=== PATIENT | female | born 1995 | race Caucasian/White ===

== ENCOUNTER 2022-11-20 12:54 | Day surgery (SDC) | payer BC ==
[2022-11-20] MEDS ORDERED: hydrALAZINE 20 MG/ML VIAL SLOW IVP PRN (13:45)
[2022-11-20 14:04] VITALS: BMI 30.1
[2022-11-20 14:35] LABS: #Basophils 0.1 10x3/uL (0.0-0.2); #Eosinphils 0.1 10x3/uL (0.0-0.5); #Monocytes 0.8 10x3/uL (0.0-1.1); #Neutrophils 6.6 10x3/uL (1.5-8.4); %Basophils 0.5 % (0.0-2.0); %Lymphocytes 17.7 % (18.0-47.0); %Monocytes 8.2 % (0.0-10.0); %Neutrophils 72.2 % (40.0-75.0); Hemoglobin 10.6 g/dL (12.0-15.5); Mean Corpuscular HGB CONC 34.5 g/dL (32.0-36.0); Mean Corpuscular Volume 95.6 fl (81.6-98.3); Mean Platelet Volume 11.1 fl (7.4-10.4); Platelet Count 171 10x3/uL (150-450); RBC Distribution Width 12.3 % (11.5-14.5); Red Blood Cell (RBC) Count 3.21 10x6/uL (3.90-5.03); White Blood Cell (WBC) Count 9.2 10x3/uL (3.5-10.5)
[2022-11-20 14:49] LABS: Creatinine, Urine 69.01 mg/dL (47-110)
[2022-11-20 14:50] LABS: ALT (SGPT) 13 U/L (8-55); AST (SGOT) 14 U/L (5-34); Albumin 3.1 g/dL (3.5-5.0); Alkaline Phosphatase 132 U/L (40-110); Anion Gap 13 mmol/L (10-20); BUN (Urea Nitrogen) 15 mg/dL (7.0-18.7); Bilirubin, Total 0.2 mg/dL (0.2-1.2); Calc. Creatinine Clearance 177 mL/min (70-130); Calcium 8.2 mg/dL (7.8-10.44); Carbon Dioxide 23 mmol/L (22-29); Chloride 104 mmol/L (98-107); Estimated GFR 125; Glucose 115 mg/dL (70-105); Potassium 3.6 mmol/L (3.5-5.1); Protein, Total 6.1 g/dL (6.0-8.3); Sodium 136 mmol/L (136-145)
[2022-11-20 15:09] LABS: HIV (1/2) Antibody/Antigen Non-Reactive (NonReactive); HIV 1/2 INDEX 0.14 S/CO (<1.00)
[2022-11-20 15:10] LABS: Syphilis Antibody Nonreactive (Nonreactive); Syphilis Antibody Index 0.03 S/CO (<1.00 Non-Reactive)
[2022-11-21 22:49] LABS: Group B Streptococcus by PCR Not Detected (NotDetected)
== END 2022-11-20 17:35 | disposition home or self-care (01) ==
LOC: CSHLD/OP 12:54
PROVIDERS: ATTEND Family Medicine
DX: O12.03 Gestational edema, third trimester (principal); O14.93 Unspecified pre-eclampsia, third trimester; O99.891 Other specified diseases and conditions complicating pregnancy; R51.9 Headache, unspecified; O99.323 Drug use complicating pregnancy, third trimester; F12.90 Cannabis use, unspecified, uncomplicated; Z79.899 Other long term (current) drug therapy; Z88.2 Allergy status to sulfonamides; Z3A.35 35 weeks gestation of pregnancy; Z91.040 Latex allergy status
CPT/HCPCS: 80053; 82570; 84156; 85025; 86780; 87389; 87653; 99285

== ENCOUNTER 2022-11-23 18:02 | Day surgery (SDC) | payer BC ==
[2022-11-23 18:25] VITALS: BMI 30.2
[2022-11-23] MEDS ORDERED: hydrALAZINE 20 MG/ML VIAL SLOW IVP PRN (18:43)
[2022-11-23] MEDS ORDERED: Acetaminophen 325 MG TAB PO PRN (19:44)
[2022-11-23] MEDS ORDERED: Acetaminophen 500 MG TAB PO PRN (19:53)
[2022-11-23 20:01] LABS: #Eosinphils 0.1 10x3/uL (0.0-0.5); #Monocytes 0.9 10x3/uL (0.0-1.1); #Neutrophils 7.3 10x3/uL (1.5-8.4); %Basophils 0.4 % (0.0-2.0); %Lymphocytes 19.8 % (18.0-47.0); %Neutrophils 69.2 % (40.0-75.0); Hemoglobin 10.9 g/dL (12.0-15.5); Mean Corpuscular HGB CONC 34.5 g/dL (32.0-36.0); Mean Corpuscular Hemoglobin 32.9 pg (27.0-33.0); Mean Corpuscular Volume 95.5 fl (81.6-98.3); Mean Platelet Volume 11.3 fl (7.4-10.4); Platelet Count 182 10x3/uL (150-450); RBC Distribution Width 12.4 % (11.5-14.5); Red Blood Cell (RBC) Count 3.31 10x6/uL (3.90-5.03); White Blood Cell (WBC) Count 10.5 10x3/uL (3.5-10.5)
[2022-11-23 20:12] LABS: ALT (SGPT) 8 U/L (8-55); AST (SGOT) 14 U/L (5-34); Albumin 3.1 g/dL (3.5-5.0); Alkaline Phosphatase 135 U/L (40-110); Anion Gap 13 mmol/L (10-20); BUN (Urea Nitrogen) 16 mg/dL (7.0-18.7); Bilirubin, Total 0.2 mg/dL (0.2-1.2); Calc. Creatinine Clearance 178 mL/min (70-130); Calcium 8.4 mg/dL (7.8-10.44); Carbon Dioxide 23 mmol/L (22-29); Chloride 104 mmol/L (98-107); Estimated GFR 125; Globulin 3.3 g/dL (2.4-3.5); Glucose 91 mg/dL (70-105); Potassium 3.6 mmol/L (3.5-5.1); Protein, Total 6.4 g/dL (6.0-8.3); Sodium 136 mmol/L (136-145)
[2022-11-23 20:16] LABS: Creatinine, Urine 120.65 mg/dL (47-110)
== END 2022-11-23 22:55 | disposition home or self-care (01) ==
LOC: CSHLD/OP 18:02
PROVIDERS: ATTEND Emergency Medicine
DX: O14.03 Mild to moderate pre-eclampsia, third trimester (principal); Z3A.36 36 weeks gestation of pregnancy; O99.891 Other specified diseases and conditions complicating pregnancy; O34.593 Maternal care for other abnormalities of gravid uterus, third trimester; N85.6 Intrauterine synechiae; R51.9 Headache, unspecified; O99.343 Other mental disorders complicating pregnancy, third trimester; F41.1 Generalized anxiety disorder; Z79.899 Other long term (current) drug therapy; Z88.2 Allergy status to sulfonamides; Z91.040 Latex allergy status
CPT/HCPCS: 36415; 80053; 82570; 84156; 85025; 99284

== ENCOUNTER 2022-11-25 00:26 | Inpatient (IN) | payer BC ==
[2022-11-25 00:50] VITALS: BMI 30.6
[2022-11-25] MEDS ORDERED: Calcium Gluc 4.6 MEQ/10 ML (100 MG/ML) SLOW IVP PRN (00:51)
[2022-11-25] MEDS ORDERED: hydrALAZINE 20 MG/ML VIAL SLOW IVP PRN (00:51)
[2022-11-25] MEDS ORDERED: Lorazepam 2 MG/ML VIAL SLOW IVP PRN (00:51)
[2022-11-25 01:42] LABS: Creatinine, Urine 92.74 mg/dL (47-110)
[2022-11-25 02:15] LABS: #Eosinphils 0.2 10x3/uL (0.0-0.5); #Monocytes 1.2 10x3/uL (0.0-1.1); #Neutrophils 6.8 10x3/uL (1.5-8.4); %Basophils 0.3 % (0.0-2.0); %Eosinophils 1.4 % (0.0-6.0); %Lymphocytes 21.7 % (18.0-47.0); %Monocytes 11.4 % (0.0-10.0); %Neutrophils 64.8 % (40.0-75.0); Hemoglobin 10.5 g/dL (12.0-15.5); Mean Corpuscular HGB CONC 35.1 g/dL (32.0-36.0); Mean Corpuscular Hemoglobin 33.5 pg (27.0-33.0); Mean Corpuscular Volume 95.5 fl (81.6-98.3); Mean Platelet Volume 10.9 fl (7.4-10.4); Platelet Count 169 10x3/uL (150-450); RBC Distribution Width 12.4 % (11.5-14.5); Red Blood Cell (RBC) Count 3.13 10x6/uL (3.90-5.03); White Blood Cell (WBC) Count 10.5 10x3/uL (3.5-10.5)
[2022-11-25 02:32] LABS: ALT (SGPT) 12 U/L (8-55); AST (SGOT) 16 U/L (5-34); Albumin 2.9 g/dL (3.5-5.0); Alkaline Phosphatase 130 U/L (40-110); Anion Gap 13 mmol/L (10-20); BUN (Urea Nitrogen) 16 mg/dL (7.0-18.7); Bilirubin, Total 0.2 mg/dL (0.2-1.2); Calc. Creatinine Clearance 186 mL/min (70-130); Calcium 8.1 mg/dL (7.8-10.44); Carbon Dioxide 22 mmol/L (22-29); Chloride 104 mmol/L (98-107); Estimated GFR 126; Globulin 2.7 g/dL (2.4-3.5); Glucose 94 mg/dL (70-105); Potassium 3.5 mmol/L (3.5-5.1); Protein, Total 5.6 g/dL (6.0-8.3); Sodium 135 mmol/L (136-145)
[2022-11-25] MEDS ORDERED: Promethazine HCl 25 MG/ML VIAL IM PRN ×2 (02:56→21:25)
[2022-11-25] MEDS ORDERED: Ondansetron PF 4 MG/2 ML Vial IVP PRN ×2 (02:56→21:25)
[2022-11-25] MEDS: Acetaminophen 500 MG TAB PO PRN ×2 (03:00→22:38)
[2022-11-25] MEDS ORDERED: NS w/ Oxytocin 30 units 500 ML IV SCH ×3 (03:00→13:30)
[2022-11-25] MEDS ORDERED: Bupivacaine/Epinephrine 0.25% 30 ML VIAL ONE (08:00)
[2022-11-25] MEDS ORDERED: Carboprost 250 MCG/ML AMP IM PRN (08:53)
[2022-11-25] MEDS ORDERED: Tranexamic Acid 1,000 MG/10 ML VIAL IVP PRN (08:53)
[2022-11-25] MEDS ORDERED: Diphenoxylate HCl/Atropine Tablet PO PRN (08:53)
[2022-11-25] MEDS ORDERED: Misoprostol 200 MCG TAB PR PRN (08:53)
[2022-11-25] MEDS ORDERED: Butorphanol Tartrate 1 MG/ML VIAL SLOW IVP PRN (08:53)
[2022-11-25] MEDS ORDERED: Magnesium 2 GM/50 ML(in water) 1 GM in Premix Bag 1 BAG IVPB SCH (09:00)
[2022-11-25] MEDS ORDERED: Magnesium Sulfate 4 GM in Sodium Chloride 0.9% 250 ML 250 ML IVPB SCH (09:00)
[2022-11-25] MEDS ORDERED: Magnesium Sulfate 20 gm/500 ml 20 GM/500 ML BAG ONE (09:06)
[2022-11-25] MEDS ORDERED: Magnesium Sulfate 20 gm/500 ml 20 GM/500 ML BAG IVPB PRN (09:15)
[2022-11-25] MEDS ORDERED: Magnesium Sulfate 20 gm/500 ml 4 GM/100 ML BAG IVPB ONE (09:15)
[2022-11-25] MEDS ORDERED: Misoprostol 100 MCG TAB ONE (10:19)
[2022-11-25 10:58] LABS: HBSAg Index 0.16 S/CO (0-0.99); Hep B Surf Ag - L&D Non-Reactive S/CO (NonReactive)
[2022-11-25 11:00] LABS: Syphilis Antibody Nonreactive (Nonreactive); Syphilis Antibody Index 0.04 S/CO (<1.00 Non-Reactive)
[2022-11-25] MEDS ORDERED: Metoclopramide HCl 10 MG/2 ML VIAL IVP SCH ×2 (12:30→18:30)
[2022-11-25] MEDS ORDERED: Ibuprofen 800 MG TAB PO PRN (13:21)
[2022-11-25] MEDS ORDERED: Lidocaine 1% (PF) 30 ML VIAL SC PRN (13:21)
[2022-11-25] MEDS ORDERED: Misoprostol 100 MCG TAB VAG SCH (13:30)
[2022-11-25] MEDS ORDERED: Penicillin G Potassium 5 MILL.UNITS in Sodium Chloride 0.9% 100 ML IVPB SCH (13:30)
[2022-11-25] MEDS ORDERED: Fentanyl 2 mcg/Bup 0.1% Cadd 100 ML ONE (17:41)
[2022-11-25] MEDS: Fentanyl 100 MCG/2 ML VIAL SLOW IVP PRN (19:29)
[2022-11-25] MEDS: Lactated Ringer's 1,000 ML IV SCH ×2 (20:59→22:02)
[2022-11-25] MEDS ORDERED: Moisturizing Cream (Eucerin) 113 GM JAR TOP PRN (21:25)
[2022-11-25] MEDS ORDERED: ePHEDrine Sulfate 50 MG/10 ML VIAL SLOW IVP PRN (21:25)
[2022-11-25] MEDS ORDERED: Acetaminophen 325 MG TAB PO PRN (21:25)
[2022-11-25] MEDS ORDERED: Naloxone HCl 0.4 mg/ml Vial IVP PRN ×2 (21:25)
[2022-11-25] MEDS ORDERED: diphenhydrAMINE 50 MG/ML VIAL IVP PRN (21:25)
[2022-11-25] MEDS ORDERED: Lactated Ringer's 500 ML IV PRN (21:25)
[2022-11-25] MEDS ORDERED: Fentanyl 2 mcg/Bupivacaine 0.1% Cassette 100 ML EPIDURAL SCH (21:30)
[2022-11-25] MEDS ORDERED: Communication Order-Pharmacy FS SCH (21:30)
[2022-11-25] MEDS: Misoprostol 100 MCG TAB VAG SCH ×2 (22:02→22:54)
[2022-11-26] MEDS ORDERED: Penicillin G Potassium 5 MILL.UNITS VIAL ONE (00:10)
[2022-11-26] MEDS: Penicillin G 2.5 MILL.units 2.5 MILL.UNITS in Premix Bag 1 BAG IVPB SCH ×3 (00:27→01:53)
[2022-11-26] MEDS: Lactated Ringer's 1,000 ML IV SCH (01:30)
[2022-11-26] MEDS: Misoprostol 100 MCG TAB VAG SCH ×2 (01:53→01:54)
[2022-11-26] MEDS ORDERED: Labetalol HCl 100 MG/20 ML VIAL ONE (05:20)
[2022-11-26] MEDS ORDERED: Labetalol HCl 100 MG/20 ML VIAL SLOW IVP PRN ×3 (05:21)
[2022-11-26] MEDS ORDERED: hydrALAZINE 20 MG/ML VIAL SLOW IVP PRN (05:21)
[2022-11-26] MEDS ORDERED: HYDROcodone/Acetaminophen 5/325 mg Tablet PO SCH (05:30)
[2022-11-26] MEDS ORDERED: Misoprostol 200 MCG TAB ONE (05:40)
[2022-11-26] MEDS ORDERED: Methylergonovine 0.2 MG/ML VIAL ONE (05:42)
[2022-11-26] MEDS ORDERED: Tranexamic Acid 1,000 MG/10 ML VIAL ONE ×2 (05:42→09:27)
[2022-11-26] MEDS ORDERED: Fentanyl 100 MCG/2 ML VIAL ONE ×2 (05:51→08:43)
[2022-11-26] MEDS ORDERED: Benzocaine-Menthol 82.5 ML CAN TOP PRN (06:13)
[2022-11-26] MEDS ORDERED: Bisacodyl 10 MG SUPP PR PRN (06:13)
[2022-11-26] MEDS ORDERED: Ondansetron PF 4 MG/2 ML Vial IVP PRN (06:13)
[2022-11-26] MEDS ORDERED: diphenhydrAMINE 25 MG CAP PO PRN (06:13)
[2022-11-26] MEDS ORDERED: Promethazine HCl 25 MG/ML VIAL IM PRN (06:13)
[2022-11-26] MEDS ORDERED: Milk Of Magnesia 30 ML UDCUP PO PRN (06:13)
[2022-11-26] MEDS ORDERED: Misoprostol 200 MCG TAB VAG PRN (06:13)
[2022-11-26] MEDS ORDERED: Tranexamic Acid 1,000 MG in Sodium Chloride 0.9% 250 ML 250 ML IVPB SCH (06:30)
[2022-11-26] MEDS ORDERED: Carboprost 250 MCG/ML AMP IM SCH (08:15)
[2022-11-26] MEDS: Diphenoxylate HCl/Atropine Tablet PO PRN ×2 (08:20→10:55)
[2022-11-26] MEDS: Fentanyl 100 MCG/2 ML VIAL SLOW IVP PRN (08:43)
[2022-11-26] MEDS ORDERED: Tranexamic Acid 1,000 MG/10 ML VIAL IVP SCH (09:15)
[2022-11-26 09:51] LABS: Hemoglobin 10.1 g/dL (12.0-15.5); Mean Corpuscular HGB CONC 34.4 g/dL (32.0-36.0); Mean Corpuscular Hemoglobin 32.6 pg (27.0-33.0); Mean Corpuscular Volume 94.8 fl (81.6-98.3); Mean Platelet Volume 10.5 fl (7.4-10.4); Platelet Count 172 10x3/uL (150-450); RBC Distribution Width 12.5 % (11.5-14.5); White Blood Cell (WBC) Count 20.1 10x3/uL (3.5-10.5)
[2022-11-26 09:52] LABS: MDiff Complete? YES
[2022-11-26 09:58] LABS: INR-International Normal Ratio 0.9; PTT 25.7 sec (22.0-33.0); Prothrombin Time 9.4 sec (9.5-12.1)
[2022-11-26 10:08] LABS: ALT (SGPT) 12 U/L (8-55); AST (SGOT) 23 U/L (5-34); Albumin 2.8 g/dL (3.5-5.0); Alkaline Phosphatase 123 U/L (40-110); Anion Gap 13 mmol/L (10-20); BUN (Urea Nitrogen) 11 mg/dL (7.0-18.7); Bilirubin, Total 0.3 mg/dL (0.2-1.2); Calc. Creatinine Clearance 199 mL/min (70-130); Calcium 7.2 mg/dL (7.8-10.44); Carbon Dioxide 22 mmol/L (22-29); Chloride 102 mmol/L (98-107); Estimated GFR 128; Globulin 2.7 g/dL (2.4-3.5); Glucose 95 mg/dL (70-105); Potassium 3.7 mmol/L (3.5-5.1); Protein, Total 5.5 g/dL (6.0-8.3); Sodium 133 mmol/L (136-145)
[2022-11-26 10:10] LABS: Platelet Morphology Comment Appears Adequate
[2022-11-26 10:39] LABS: Band 4 % (5-11); Lymphocytes 9 % (21-51); Monocytes 11 % (0-10); Neutrophil 76 % (42-75)
[2022-11-26 10:41] LABS: RBC Morphology Normal
[2022-11-26] MEDS ORDERED: Diphenoxylate HCl/Atropine Tablet PO SCH (11:00)
[2022-11-26] MEDS ORDERED: CEFAZOLIN 1 GM in Sodium Chloride 0.9% 100 ML IVPB SCH (11:00)
[2022-11-26 12:25] LABS: Hemoglobin 9.7 g/dL (12.0-15.5); Mean Corpuscular HGB CONC 34.3 g/dL (32.0-36.0); Mean Corpuscular Hemoglobin 32.8 pg (27.0-33.0); Mean Corpuscular Volume 95.6 fl (81.6-98.3); Mean Platelet Volume 10.8 fl (7.4-10.4); Platelet Count 175 10x3/uL (150-450); RBC Distribution Width 12.5 % (11.5-14.5); Red Blood Cell (RBC) Count 2.96 10x6/uL (3.90-5.03); White Blood Cell (WBC) Count 20.1 10x3/uL (3.5-10.5)
[2022-11-26] MEDS: Ibuprofen 800 MG TAB PO SCH ×2 (14:09→22:06)
[2022-11-26] MEDS: Ferrous Sulfate 325 MG TAB PO SCH ×2 (17:04→21:09)
[2022-11-26] MEDS: Prenatal Vitamin 1 TAB PO SCH (21:09)
[2022-11-26] MEDS: Docusate 100 MG CAP PO SCH ×2 (21:09→22:06)
[2022-11-27 05:31] LABS: #Eosinphils 0.1 10x3/uL (0.0-0.5); #Monocytes 1.2 10x3/uL (0.0-1.1); #Neutrophils 9.4 10x3/uL (1.5-8.4); %Basophils 0.2 % (0.0-2.0); %Eosinophils 0.6 % (0.0-6.0); %Lymphocytes 23.3 % (18.0-47.0); %Monocytes 8.2 % (0.0-10.0); %Neutrophils 67.3 % (40.0-75.0); Hemoglobin 7.3 g/dL (12.0-15.5); Mean Corpuscular HGB CONC 34.1 g/dL (32.0-36.0); Mean Corpuscular Volume 96.8 fl (81.6-98.3); Mean Platelet Volume 11.2 fl (7.4-10.4); Platelet Count 160 10x3/uL (150-450); RBC Distribution Width 12.8 % (11.5-14.5); Red Blood Cell (RBC) Count 2.21 10x6/uL (3.90-5.03)
[2022-11-27] MEDS: Ibuprofen 800 MG TAB PO SCH ×3 (05:32→21:37)
[2022-11-27] MEDS: Docusate 100 MG CAP PO SCH ×2 (10:52→21:37)
[2022-11-27] MEDS: Ferrous Sulfate 325 MG TAB PO SCH ×2 (10:53→17:35)
[2022-11-27] MEDS: Prenatal Vitamin 1 TAB PO SCH (10:53)
[2022-11-27] MEDS ORDERED: Furosemide 20 MG/2 ML VIAL SLOW IVP SCH (13:00)
[2022-11-28] MEDS: Ibuprofen 800 MG TAB PO SCH ×2 (04:56→14:26)
[2022-11-28 05:45] LABS: Hemoglobin 7.9 g/dL (12.0-15.5); Mean Corpuscular HGB CONC 33.8 g/dL (32.0-36.0); Mean Corpuscular Hemoglobin 32.4 pg (27.0-33.0); Mean Corpuscular Volume 95.9 fl (81.6-98.3); Mean Platelet Volume 10.9 fl (7.4-10.4); Platelet Count 162 10x3/uL (150-450); RBC Distribution Width 14.1 % (11.5-14.5); Red Blood Cell (RBC) Count 2.44 10x6/uL (3.90-5.03); White Blood Cell (WBC) Count 11.6 10x3/uL (3.5-10.5)
[2022-11-28 07:48] VITALS: BP 120/68; TEMP 98.3
[2022-11-28] MEDS: Ferrous Sulfate 325 MG TAB PO SCH ×2 (08:48→17:26)
[2022-11-28] MEDS: Docusate 100 MG CAP PO SCH (08:48)
[2022-11-28] MEDS: Prenatal Vitamin 1 TAB PO SCH (08:49)
== END 2022-11-28 18:05 | disposition home or self-care (01) | DRG 806 ==
LOC: CSHLD/OP 00:26 → CSHLD 03:04 → OBSVTOIN 08:54 → CSHPP 11-26 12:17
PROVIDERS: ADMIT Student in an Organized Health Care Education/Training Program; ATTEND Student in an Organized Health Care Education/Training Program
PROC: 3E0P7VZ Introduction of Hormone into Female Reproductive, Via Natural or Artificial Opening (ICD-10-PCS; 2022-11-25)
PROC: 10D07Z6 Extraction of Products of Conception, Vacuum, Via Natural or Artificial Opening (ICD-10-PCS; principal; 2022-11-26)
PROC: 0KQM0ZZ Repair Perineum Muscle, Open Approach (ICD-10-PCS; 2022-11-26)
PROC: 30233N1 Transfusion of Nonautologous Red Blood Cells into Peripheral Vein, Percutaneous Approach (ICD-10-PCS; 2022-11-26)
PROC: 0UC97ZZ Extirpation of Matter from Uterus, Via Natural or Artificial Opening (ICD-10-PCS; 2022-11-26)
DX: O14.14 Severe pre-eclampsia complicating childbirth (principal); D62 Acute posthemorrhagic anemia; Z37.0 Single live birth; O72.1 Other immediate postpartum hemorrhage; K21.9 Gastro-esophageal reflux disease without esophagitis; O99.62 Diseases of the digestive system complicating childbirth; Z87.891 Personal history of nicotine dependence; Z3A.36 36 weeks gestation of pregnancy; O70.1 Second degree perineal laceration during delivery; O71.82 Other specified trauma to perineum and vulva; O76 Abnormality in fetal heart rate and rhythm complicating labor and delivery; O26.893 Other specified pregnancy related conditions, third trimester; Z67.41 Type O blood, Rh negative; F41.1 Generalized anxiety disorder; O99.344 Other mental disorders complicating childbirth; Z79.899 Other long term (current) drug therapy; Z91.040 Latex allergy status; Z88.2 Allergy status to sulfonamides; Z88.8 Allergy status to other drugs, medicaments and biological substances; O42.02 Full-term premature rupture of membranes, onset of labor within 24 hours of rupture; O99.03 Anemia complicating the puerperium; O99.892 Other specified diseases and conditions complicating childbirth; N85.6 Intrauterine synechiae; R51.9 Headache, unspecified
CPT/HCPCS: 36415; 36430; 51702; 80053; 82570; 82728; 84156; 85025; 85027; 85610; 85730; 86780; 86850; 86900; 86901; 87340; 88307; 99284; 99285; G0378; J0690; J1940; J2540; J2590; J2765; J3010; J3475; J3490; J7050; J7120; P9016